=== PATIENT | male | born 1995 | race Caucasian/White ===

== ENCOUNTER 2020-04-28 20:18 | Emergency (ER) | payer BC ==
[~2020-04-28] VITALS: Ht 182.9 cm; Wt 77.4 kg
[2020-04-28] MEDS ORDERED: BACITRACIN ZINC OINT UDPKT TOP ONE (21:00)
[2020-04-28] MEDS ORDERED: TETANUS, DIPHTHERIA, PERTUSSIS VAC/PF 0.5ML (>7YR OLD) IM ONE (21:00)
[2020-04-28] MEDS ORDERED: KETOROLAC 60MG/2ML VIAL IM ONE (21:00)
[2020-04-28 21:39] VITALS: BP 106/58
== END 2020-04-28 21:43 | disposition home or self-care (01) ==
LOC: ER 20:18
DX: S68.021A Partial traumatic metacarpophalangeal amputation of right thumb, initial encounter (principal); W26.0XXA Contact with knife, initial encounter; Y93.G3 Activity, cooking and baking; Y92.89 Other specified places as the place of occurrence of the external cause; Z23 Encounter for immunization
CPT/HCPCS: 90471; 90715; 96372; 99284; J1885